=== PATIENT | female | born 1975 | race Caucasian/White ===

== ENCOUNTER 2019-03-02 03:45 | Inpatient (IN) | payer OTHER ==
[~2019-03-02] VITALS: Ht 165.1 cm; Wt 106.7 kg
[2019-03-02 04:14] LABS: BASOPHILS % (AUTO) 0.4 % (0.0-2.0); EOSINOPHILS % (AUTO) 1.4 % (1.0-6.0); HEMOGLOBIN 9.1 g/dL (12.0-16.0); LYMPHOCYTES # (AUTO) 1.8 K/uL (1.0-4.8); LYMPHOCYTES % (AUTO) 20.6 % (22.0-44.0); MEAN CORPUSCULAR HEMOGLOBIN 22.7 pg (26.0-34.0); MEAN CORPUSCULAR HGB CONC 30.4 G/dL (31.0-37.0); MEAN CORPUSCULAR VOLUME 75 fL (80-100); MONOCYTES # (AUTO) 0.6 K/uL (0.1-1.0); NEUTROPHILS # (AUTO) 6.3 K/uL (1.8-7.7); NEUTROPHILS % (AUTO) 70.6 % (40.0-70.0); PLATELET COUNT (AUTO) 366 K/uL (150-450); RED BLOOD CELL COUNT(AUTO) 4.03 MIL/uL (4.00-5.20); RED CELL DISTRIBUTION WIDTH 19.3 % (11.5-14.5)
[2019-03-02 04:23] LABS: ANION GAP 10 mmol/L (8-16); CALCIUM, TOTAL 8.9 mg/dL (8.8-10.5); CARBON DIOXIDE 25 mmol/L (22-29); CHLORIDE 102 mmol/L (98-107); CREATININE 0.95 mg/dL (0.60-1.30); GLOMERULAR FILTR. RATE CALC > 60 mL/min (>60); GLUCOSE,RANDOM 109 mg/dL (70-110); POTASSIUM 4.4 mmol/L (3.5-5.1); SODIUM SERUM 137 mmol/L (136-145); UREA NITROGEN, BLOOD 13 mg/dL (7-18)
[2019-03-02 04:28] LABS: ALANINE AMINOTRANSFERASE 11 U/L (12-78); ALBUMIN 3.6 g/dL (3.4-5.0); ALKALINE PHOSPHATASE 64 U/L (46-116); ASPARTATE AMINOTRANSFERASE 18 U/L (15-37); BILIRUBIN,TOTAL 0.3 mg/dL (0.1-1.0); TOTAL PROTEIN, SERUM 7.7 g/dL (6.4-8.2)
[2019-03-02] MEDS ORDERED: DIAZEPAM 5 MG/ML 2 ML SYRINGE IVP ONE (06:30)
[2019-03-02] MEDS ORDERED: ACETAMINOPHEN 500 MG TABLET PO ONE (06:30)
[2019-03-02] MEDS ORDERED: LIDOCAINE 5% TRANSDERMAL PATCH TD ONE (06:30)
[2019-03-02] MEDS ORDERED: SODIUM CHLORIDE 0.9% 100 ML ONE (06:34)
[2019-03-02] MEDS ORDERED: IOVERSOL 350 MG/ML 150 ML VIAL ONE (06:34)
[2019-03-02] MEDS ORDERED: MORPHINE SULFATE 4 MG/ML SYRINGE IVP ONE (07:30)
[2019-03-02] MEDS ORDERED: HEPARIN SODIUM 25000 UNITS/D5W 250 ML IV PRN (08:12)
[2019-03-02] MEDS ORDERED: HEPARIN SODIUM,PORCINE 5,000 UNITS/ML VIAL IVP PRN ×4 (08:15→14:45)
[2019-03-02] MEDS ORDERED: HEPARIN SODIUM,PORCINE 5,000 UNITS/ML VIAL IVP ONE ×3 (08:15→14:45)
[2019-03-02 08:20] LABS: BASOPHILS % (AUTO) 0.4 % (0.0-2.0); EOSINOPHILS % (AUTO) 1.4 % (1.0-6.0); HEMATOCRIT 29.8 % (36-46); HEMOGLOBIN 9.1 g/dL (12.0-16.0); LYMPHOCYTES # (AUTO) 1.8 K/uL (1.0-4.8); LYMPHOCYTES % (AUTO) 19.6 % (22.0-44.0); MEAN CORPUSCULAR HEMOGLOBIN 22.9 pg (26.0-34.0); MEAN CORPUSCULAR HGB CONC 30.5 G/dL (31.0-37.0); MEAN CORPUSCULAR VOLUME 75 fL (80-100); MONOCYTES # (AUTO) 0.6 K/uL (0.1-1.0); MONOCYTES % (AUTO) 6.7 % (2.0-9.0); NEUTROPHILS # (AUTO) 6.5 K/uL (1.8-7.7); NEUTROPHILS % (AUTO) 71.9 % (40.0-70.0); PLATELET COUNT (AUTO) 349 K/uL (150-450); RED BLOOD CELL COUNT(AUTO) 3.97 MIL/uL (4.00-5.20); RED CELL DISTRIBUTION WIDTH 19.3 % (11.5-14.5)
[2019-03-02] MEDS ORDERED: ACETAMINOPHEN 325 MG TABLET PO PRN ×2 (08:30→14:45)
[2019-03-02] MEDS ORDERED: 0.9% SODIUM CHLORIDE 10 ML SYRINGE IVP PRN (08:30)
[2019-03-02] MEDS ORDERED: ONDANSETRON HCL 4 MG/2 ML VIAL IVP PRN ×2 (08:30→14:45)
[2019-03-02 08:32] LABS: INR 0.9 (0.9-1.1); PROTHROMBIN TIME 9.4 SEC (9.4-11.6)
[2019-03-02 10:08] VITALS: BP 109/60
[2019-03-02] MEDS ORDERED: MORPHINE SULFATE 2 MG/ML SYRINGE IVP PRN ×2 (10:15→14:45)
[2019-03-02] MEDS ORDERED: IBUPROFEN 800 MG TABLET PO PRN (12:30)
[2019-03-02] MEDS ORDERED: ALBUTEROL SULFATE 2.5 MG/0.5 ML NEB SOLUTION NEB PRN (14:45)
[2019-03-02] MEDS ORDERED: BISACODYL 10 MG RECTAL RECTAL SUPPOSITORY PR PRN (14:45)
[2019-03-02] MEDS ORDERED: IPRATROPIUM BROMIDE 0.5 MG/2.5 ML NEB SOLUTION NEB PRN (14:45)
[2019-03-02] MEDS ORDERED: MAGNESIUM HYDROXIDE SUSPENSION 30 ML UDCUP PO PRN (14:45)
[2019-03-02 14:56] LABS: BASOPHILS % (AUTO) 0.5 % (0.0-2.0); EOSINOPHILS % (AUTO) 1.5 % (1.0-6.0); HEMATOCRIT 28.3 % (36-46); HEMOGLOBIN 8.5 g/dL (12.0-16.0); LYMPHOCYTES # (AUTO) 1.3 K/uL (1.0-4.8); LYMPHOCYTES % (AUTO) 14.1 % (22.0-44.0); MEAN CORPUSCULAR HEMOGLOBIN 22.7 pg (26.0-34.0); MEAN CORPUSCULAR VOLUME 76 fL (80-100); MONOCYTES # (AUTO) 0.7 K/uL (0.1-1.0); MONOCYTES % (AUTO) 7.6 % (2.0-9.0); NEUTROPHILS # (AUTO) 7.2 K/uL (1.8-7.7); NEUTROPHILS % (AUTO) 76.3 % (40.0-70.0); PLATELET COUNT (AUTO) 279 K/uL (150-450); RED BLOOD CELL COUNT(AUTO) 3.74 MIL/uL (4.00-5.20); RED CELL DISTRIBUTION WIDTH 19.9 % (11.5-14.5)
[2019-03-02 15:23] LABS: INR 0.9 (0.9-1.1); PROTHROMBIN TIME 9.9 SEC (9.4-11.6)
[2019-03-02 15:58] VITALS: BP 115/68
[2019-03-02] MEDS: HYDROCODONE/ACETAMINOPHEN 5-325 MG TABLET PO PRN ×2 (16:07→20:25)
[2019-03-02] MEDS: HEPARIN SODIUM 25000 UNITS/D5W 250 ML IV PRN (17:43)
[2019-03-02 20:09] VITALS: BP 118/74
[2019-03-02] MEDS: DOCUSATE SODIUM 100 MG CAPSULE PO SCH (20:25)
[2019-03-03] VITALS (7 sets, daily range): BP systolic 119–134; BP diastolic 57–79
[2019-03-03] MEDS: HYDROCODONE/ACETAMINOPHEN 5-325 MG TABLET PO PRN ×4 (00:40→23:26)
[2019-03-03] MEDS: ZOLPIDEM TARTRATE 5 MG TABLET PO PRN ×2 (00:40→23:26)
[2019-03-03 05:48] LABS: BASOPHILS % (AUTO) 0.4 % (0.0-2.0); EOSINOPHILS % (AUTO) 1.8 % (1.0-6.0); HEMATOCRIT 27.1 % (36-46); HEMOGLOBIN 8.4 g/dL (12.0-16.0); LYMPHOCYTES # (AUTO) 1.5 K/uL (1.0-4.8); LYMPHOCYTES % (AUTO) 20.6 % (22.0-44.0); MEAN CORPUSCULAR HEMOGLOBIN 23.1 pg (26.0-34.0); MEAN CORPUSCULAR HGB CONC 30.8 G/dL (31.0-37.0); MEAN CORPUSCULAR VOLUME 75 fL (80-100); MONOCYTES # (AUTO) 0.5 K/uL (0.1-1.0); MONOCYTES % (AUTO) 7.2 % (2.0-9.0); NEUTROPHILS # (AUTO) 5.2 K/uL (1.8-7.7); PLATELET COUNT (AUTO) 308 K/uL (150-450); RED BLOOD CELL COUNT(AUTO) 3.61 MIL/uL (4.00-5.20); RED CELL DISTRIBUTION WIDTH 19.4 % (11.5-14.5)
[2019-03-03] MEDS: DOCUSATE SODIUM 100 MG CAPSULE PO SCH ×2 (08:07→21:09)
[2019-03-03] MEDS: NICOTINE 21 MG/24 HOUR PATCH TD SCH (08:08)
[2019-03-03] MEDS: OxyCODONE HCL/ACETAMINOPHEN 10-325 MG TABLET PO PRN (12:40)
[2019-03-03] MEDS: KETOROLAC TROMETHAMINE 30 MG/ML VIAL IVP PRN ×2 (14:19→21:08)
[2019-03-03] MEDS: HEPARIN SODIUM 25000 UNITS/D5W 250 ML IV PRN (14:26)
[2019-03-03] MEDS: RIVAROXABAN 15 MG TABLET PO SCH (18:38)
[2019-03-04 05:33] VITALS: BP 116/71
[2019-03-04 08:25] VITALS: BP 112/68
[2019-03-04] MEDS: RIVAROXABAN 15 MG TABLET PO SCH ×2 (08:32→17:56)
[2019-03-04] MEDS: DOCUSATE SODIUM 100 MG CAPSULE PO SCH ×2 (08:33→21:00)
[2019-03-04] MEDS: NICOTINE 21 MG/24 HOUR PATCH TD SCH (08:33)
[2019-03-04] MEDS: HYDROCODONE/ACETAMINOPHEN 5-325 MG TABLET PO PRN ×3 (08:33→21:00)
[2019-03-04] MEDS: KETOROLAC TROMETHAMINE 30 MG/ML VIAL IVP PRN ×2 (10:14→18:01)
[2019-03-04 11:18] VITALS: BP 106/61
[2019-03-04] MEDS: FAMOTIDINE 20 MG TABLET PO SCH ×2 (12:46→21:01)
[2019-03-04 16:01] VITALS: BP 123/85
[2019-03-04 19:46] VITALS: BP 136/73
[2019-03-04] MEDS: ZOLPIDEM TARTRATE 5 MG TABLET PO PRN (22:36)
[2019-03-04 23:14] VITALS: BP 141/73
[2019-03-05] MEDS: OxyCODONE HCL/ACETAMINOPHEN 10-325 MG TABLET PO PRN ×2 (02:02→08:27)
[2019-03-05 04:26] VITALS: BP 126/71
[2019-03-05 07:26] VITALS: BP 96/58
[2019-03-05] MEDS: DOCUSATE SODIUM 100 MG CAPSULE PO SCH (08:20)
[2019-03-05] MEDS: RIVAROXABAN 15 MG TABLET PO SCH (08:20)
[2019-03-05] MEDS: FAMOTIDINE 20 MG TABLET PO SCH (08:21)
[2019-03-05] MEDS: NICOTINE 21 MG/24 HOUR PATCH TD SCH (08:28)
[2019-03-05 11:19] VITALS: BP 147/60
[2019-03-05] MEDS: HYDROCODONE/ACETAMINOPHEN 5-325 MG TABLET PO PRN (13:04)
[2019-03-05] MEDS ORDERED: RIVA15T PO (13:13)
[2019-03-05] MEDS ORDERED: RIVA20TA PO (13:13)
[2019-03-05] MEDS ORDERED: DSS100 PO (13:15)
[2019-03-05] MEDS ORDERED: ZOLP10TA7 PO (13:15)
[2019-03-05] MEDS ORDERED: HYDR-4061 PO (13:16)
[2019-03-05] MEDS ORDERED: NICO-704 TD (13:16)
== END 2019-03-05 13:45 | disposition home or self-care (01) | DRG 134 ==
LOC: EMS 03:46 → 5S 08:42
PROVIDERS: ADMIT Hospitalist; ATTEND Hospitalist
DX: I26.99 Other pulmonary embolism without acute cor pulmonale (principal); L03.116 Cellulitis of left lower limb; E66.9 Obesity, unspecified; R09.1 Pleurisy; F41.9 Anxiety disorder, unspecified; Z68.39 Body mass index [BMI] 39.0-39.9, adult; Z72.0 Tobacco use; Z71.6 Tobacco abuse counseling; Z86.718 Personal history of other venous thrombosis and embolism; Z98.84 Bariatric surgery status
CPT/HCPCS: 71275; 93005; G0378; J1644; J1885; J2270; J7050